=== PATIENT | female | born 1955 | race Two or more races ===

== ENCOUNTER 2019-03-03 09:59 | Outpatient (CLI) | payer MEDICARE, MEDICAID ==
[~2019-03-03] VITALS: Ht 165.1 cm; Wt 64.0 kg
[2019-03-03] MEDS ORDERED: CALCIUM500 M3 PO (13:05)
[2019-03-03] MEDS ORDERED: CHOLESTEROL MED (13:05)
[2019-03-03] MEDS ORDERED: VITAMIN D1000 UNI1 ORAL (13:05)
[2019-03-03 13:06] VITALS: BP 133/71
--- NOTE | 2019-03-03 16:30 | Consultation ---
DATE OF CONSULTATION: 03/03/2019 CONSULTING PHYSICIAN: Fabian Turner M.D. CHIEF COMPLAINT: Referred for screening colonoscopy and chronic GERD. HISTORY OF PRESENT ILLNESS: This is a 63-year-old female with past medical history significant for hypercholesteremia referred to us for evaluation for screening colonoscopy. PAST MEDICAL HISTORY: Hypercholesteremia. PAST SURGICAL HISTORY: Back surgery in 1991. MEDICATIONS: 1. Vitamin D. 2. Cholesterol medication. 3. Calcium. FAMILY HISTORY: No family history of malignancies. SOCIAL HISTORY: The patient denies any tobacco, alcohol, or drug abuse. ALLERGIES: No known drug allergy. REVIEW OF SYSTEMS: A 10-point review of systems was performed and pertinent positives in HPI. PHYSICAL EXAMINATION: VITAL SIGNS: Temperature 97.8, blood pressure 133/71, pulse 63, and respirations 20. HEENT: Normocephalic and atraumatic. Sclerae anicteric. NECK: Supple. No evidence of lymphadenopathy. CARDIOVASCULAR: Regular rate and rhythm. Plus S1 and S2. No obvious murmur. LUNGS: Clear to auscultation bilaterally. ABDOMEN: Positive bowel sounds. Soft and nontender. No rebound. No guarding. No peritoneal sign. EXTREMITIES: No cyanosis, no clubbing, no edema ASSESSMENT AND PLAN: This is a 63-year-old female referred for evaluation of screening colonoscopy. Given age of 63 and also colonoscopy, also has some mild GERD symptoms, given origin we will consider doing endoscopy to rule out H. pylori infection. Plan is scheduled for 03/11/2019 at 8 a.m. Fabian Turner M.D. DR: GISEL JOB#: [id number] CC:
== END 2019-03-03 14:42 | disposition home or self-care (01) ==
LOC: PAN 09:59
DX: K21.9 Gastro-esophageal reflux disease without esophagitis (principal); E78.00 Pure hypercholesterolemia, unspecified; Z79.899 Other long term (current) drug therapy

== ENCOUNTER 2019-03-11 06:35 | Day surgery (SDC) | payer MEDICARE, MEDICAID ==
[~2019-03-11] VITALS: Ht 152.4 cm; Wt 62.6 kg
[2019-03-11] VITALS (9 sets, daily range): BP systolic 121–140; BP diastolic 50–73
[~2019-03-11 06:35] MED LIST: CALCIUM500 M3 PO; CHOLESTEROL MED; VITAMIN D1000 UNI1 ORAL
--- NOTE | 2019-03-11 06:41 | Anethesia Preoperative Eval ---
Anesthesia Pre-op PMH/ROS General Date of Evaluation: March 11, 2019 Time of Evaluation: 06:40 Anesthesiologist: rene ASA Score: ASA 3 Mallampati Score Class I : Soft palate, uvula, fauces, pillars visible Class II: Soft palate, uvula, fauces visible Class III: Soft palate, base of uvula visible Class IV: Only hard plate visible Mallampati Classification: Class II Surgeon: rebecca Diagnosis: gerd Surgical Procedure: egd/colonoscopy Anesthesia History: none Social History: smoking - nonsmoker Family History: no anesthesia problems Allergies: Coded Allergies: No Known Allergies (Unverified , 03/03/19) Medications: see eMAR Patient NPO?: Yes Past Medical History Cardiovascular: Reports: other - hypercholesterolemia Endocrine: Reports: DM PSxH Narrative: back sx Anesthesia Pre-op Phys. Exam Physician Exam Last Vital Signs Date Time Temp Pulse Resp B/P (MAP) Pulse Ox O2 Delivery O2 Flow Rate FiO2 03/11/19 07:40 Room Air 03/11/19 07:30 97.7 62 20 140/73 97 Constitutional: NAD Neurologic: CN 2-12 intact Cardiovascular: RRR Respiratory: CTA Gastrointestinal: S/NT/ND Airway Exam Mallampati Score: Class II MO: limited Neck: flexible TMD: 2fb ROM: limited Anesthesia Pre-op A/P Studies Pre-op Studies: EKG - nsr Risk Assessment & Plan Assessment: asa3 Plan: mac Status Change Before Surgery: No Pre-Antibiotics Drug: Agata Fontenot MD March 11, 2019 06:41
[2019-03-11] MEDS ORDERED: Atropine Inj 1mg/10ml Syr IV PRN (06:45)
[2019-03-11] MEDS ORDERED: DiphenhydrAMINE 50mg/ml Inj IVP PRN (06:45)
[2019-03-11] MEDS ORDERED: fentaNYL 100 mcg/2 mL IV PRN (06:45)
[2019-03-11] MEDS ORDERED: Midazolam 2mg/2ml Inj IVP PRN (06:45)
--- NOTE | 2019-03-11 07:53 | Pre-Procedure Note/Attestation ---
Pre-Procedure Note/Attestation Complete Prior to Procedure Planned Procedure: not applicable Procedure Narrative: esophagogastroduodenoscopy and colonoscopy Indications for Procedure Pre-Operative Diagnosis: screening colon, GERD Attestation I attest that I discussed the nature of the procedure; its benefits; risks and complications; and alternatives (and the risks and benefits of such alternatives ), prior to the procedure, with the patient (or the patient's legal retail account representative). I attest that, if there was a reasonable possibility of needing a blood transfusion, the patient (or the patient's legal retail account representative) was given the [facility] standardized written summary, pursuant to the Willian [employer] Blood Safety Act ([place] Health and Safety Code # 1645, as amended). I attest that I re-evaluated the patient just prior to the surgery and that there has been no change in the patient's H&P, except as documented below: Fabian Turner MD March 11, 2019 07:53
--- NOTE | 2019-03-11 07:53 | Short Stay Surgery H&P ---
History of Present Illness History of Present Illness Chief Complaint see recent office note HPI Cira Mccabe is a 63 year old female who was admitted on for Screening Colonoscopy, Gerd, Patient History Allergies: Coded Allergies: No Known Allergies (Unverified , 03/03/19) Medication History Scheduled Calcium Carbonate (Calcium), Unknown Dose PO DAILY, (Reported) Cholecalciferol (Vitamin D3)* (Vitamin D*), Unknown Dose ORAL DAILY, (Reported) Miscellaneous Medications [Cholesterol Med ], (Reported) Physical Exam Vital Signs Last Vital Signs Date Time Temp Pulse Resp B/P (MAP) Pulse Ox O2 Delivery O2 Flow Rate FiO2 03/11/19 07:40 Room Air 03/11/19 07:30 97.7 62 20 140/73 97 Plan Attestation Are the patient's medical conditions optimized for surgery? Fabian Turner MD March 11, 2019 07:53
[2019-03-11] MEDS ORDERED: Lidocaine 1% MPF 10mg/ml 5ml ONE (09:00)
[2019-03-11] MEDS ORDERED: Propofol 200mg/20ml IV ONE (09:00)
--- NOTE | 2019-03-11 09:17 | Endoscopy Procedure Note ---
Endoscopy Procedure Note General Indication for Procedure: screening colon, GERD Procedures Performed: EGD, colonoscopy Operative Findings/Diagnosis: gastritis, hemorrhoids Specimen: yes Pt Tolerated Procedure Well: Yes Estimated Blood Loss: none Anesthesia Anesthesiologist: rene Anesthesia: MAC Inserted Devices Implant(s) used?: No Quality Quality of Bowel Preparation: Poor Did scope reach the cecum?: Yes Was there any complications?: No GI Core Measures 50 yrs or older w/o bx or poly: No 10yrs. F/U recommended: Yes If not recommended, why?: Above average risk 18 years or older w/prev. colo: No Fabian Turner MD March 11, 2019 09:17
--- NOTE | 2019-03-11 09:40 | 48 Hour Post Anesthesia Eval ---
Post Anesthesia Evaluation Procedure: egd/colonoscopy/bx Date of Evaluation: March 11, 2019 Time of Evaluation: 09:37 Blood Pressure Systolic: 139 0: 57 Pulse Rate: 57 Respiratory Rate: 18 Temperature (Fahrenheit): 97.7 O2 Sat by Pulse Oximetry: 99 Airway: patent Nausea: No Vomiting: No Pain Intensity: 0 Hydration Status: adequate Cardiopulmonary Status: stable Mental Status/LOC: patient returned to baseline Post-Anesthesia Complications: none Follow-up care needed: N/A Agata Bueno MD March 11, 2019 09:40
--- NOTE | 2019-03-11 09:40 | Immediate Post-Op Evaluation ---
Immediate Post-Op Evalulation Immediate Post-Op Evalulation Procedure: egd/colonoscopy/bx Date of Evaluation: March 11, 2019 Time of Evaluation: 09:35 IV Fluids: 50ml 0.9ns Blood Products: none Estimated Blood Loss: negligible Blood Pressure Systolic: 121 Blood Pressure Diastolic: 55 Pulse Rate: 62 Respiratory Rate: 18 O2 Sat by Pulse Oximetry: 99 Temperature (Fahrenheit): 97.7 Pain Score (1-10): 0 Nausea: No Vomiting: No Complications none Patient Status: awake, reacts, patent Hydration Status: adequate Drug: Agata Fontenot MD March 11, 2019 09:40
--- NOTE | 2019-03-11 16:30 | Procedure Note ---
DATE OF PROCEDURE: 03/11/2019 SURGEON: Fabian Turner M.D. PROCEDURE: Upper endoscopy with biopsy and colonoscopy. ANESTHESIA: Per Dr. Castillo. INSTRUMENT: Olympus adult flexible upper endoscope and colonoscope. INDICATION: Screening colonoscopy evaluation and chronic GERD. REASON FOR PROCEDURE: The procedure, risks, benefits, and possible consequences, including hemorrhage, aspiration, perforation and infection, and alternative treatments, were explained to the patient/legal guardian by Dr. Fabian Turner and the patient/legal guardian understood and accepted these risks. PROCEDURE IN DETAIL: After informed consent was obtained and the patient was adequately sedated, Olympus upper endoscope was advanced from mouth into the second portion of duodenum and retroflexion was performed in the stomach. The patient had evidence of diffuse gastritis. Random biopsy from antrum and body was obtained to rule out H. pylori infection. Otherwise, the rest of upper endoscopic examination grossly within normal limits. At this time, the upper endoscope was retrieved and the patient was turned over for colonoscopy. First, rectal exam was performed, which was normal. Then, the scope was advanced from the rectum into the cecum documented by the appendiceal orifice, ileocecal valve, and right upper quadrant palpation. Quality of prep was overall poor. Unfortunately given this prep, about 35% of the colonic mucosa was not examined, especially in the right colon, area of the ascending and proximal transverse colon was not fully examined given this prep. The patient had solid stool in this area not even able to wash. There is no evidence of any active bleeding. No obvious large polyp was seen, although small polyps under this stool can be missed. The patient had some diverticulosis in the right colon, especially in the area of the proximal ascending colon. No obvious mass was seen. Retroflexion of rectum showed evidence of small internal hemorrhoid. SUMMARY OF FINDINGS: 1. Gastritis, status post biopsy. 2. Poor colonic prep. About 35% of the colonic mucosa was not examined, especially in the right colon. 3. Scattered diverticulosis. 4. Internal hemorrhoid. RECOMMENDATIONS: 1. Follow up pathology and treat accordingly. 2. Given this prep, we recommend repeat colonoscopy in one year. Fabiannatty Turner M.D. DR: GISEL JOB#: [id number] CC:
== END 2019-03-11 10:20 | disposition home or self-care (01) ==
LOC: GAS 06:35
DX: Z12.11 Encounter for screening for malignant neoplasm of colon (principal); K21.9 Gastro-esophageal reflux disease without esophagitis; K29.50 Unspecified chronic gastritis without bleeding; K57.90 Diverticulosis of intestine, part unspecified, without perforation or abscess without bleeding; K64.8 Other hemorrhoids; E78.00 Pure hypercholesterolemia, unspecified; E11.9 Type 2 diabetes mellitus without complications; B96.81 Helicobacter pylori [H. pylori] as the cause of diseases classified elsewhere
CPT/HCPCS: 43239; 93005; G0121; J2704; 94003; 94150